=== PATIENT | female | born 1990 | race Caucasian/White ===

== ENCOUNTER 2019-03-23 04:07 | Emergency (ER) | payer MEDICAID ==
[~2019-03-23] VITALS: Ht 170.2 cm; Wt 61.2 kg
[2019-03-23 04:12] VITALS: BP 121/82
== END 2019-03-23 04:54 | disposition left against medical advice (07) ==
LOC: EDUNIT# 04:07 → EDBD 04:07 → ER 04:07
DX: F11.10 Opioid abuse, uncomplicated (principal); Z53.21 Procedure and treatment not carried out due to patient leaving prior to being seen by health care provider

== ENCOUNTER 2019-07-06 06:20 | Inpatient (IN) | payer MEDICAID ==
[~2019-07-06] VITALS: Ht 165.1 cm; Wt 62.3 kg
[2019-07-06] MEDS ORDERED: HYDROmorphone HCL 2 MG/ML VL IV ONE (07:30)
[2019-07-06] MEDS ORDERED: cefTRIAXone 1GM/50ML D5W 50 ML IV ONE (07:30)
[2019-07-06] MEDS ORDERED: levoFLOXacin 500MG 100 ML IV ONE (07:30)
[2019-07-06] MEDS ORDERED: ONDANSETRON HCL 4 MG/2 ML VIAL IV ONE (07:30)
[2019-07-06] MEDS ORDERED: SODIUM CHLORIDE 0.9% 1,000 ML IV ONE ×2 (07:30)
[2019-07-06 07:44] LABS: Basophils # (auto) 0.1 10 ^3/uL (0-0.2); Eosinophils # (auto) 0.1 10 ^3/uL (0-0.8); Eosinophils % (auto) 0.4 % (0.0-7.0); Lymphocytes # (auto) 1.9 10 ^3/uL (0.4-5.4); Mean Corpuscular Hemoglobin 26.1 pg (28.0-32.0); Neutrophils # (auto) 14.5 10 ^3/uL (1.6-8.6); Red Blood Cells 4.92 10^6/uL (4.0-5.20); Red Cell Distribution Width 15.9 % (11.8-14.3)
[2019-07-06 07:46] LABS: Basophils % (auto) 0.6 % (0.0-2.0); Hematocrit 39.3 % (36.0-46.0); Hemoglobin 12.9 g/dL (12.2-16.2); Lymphocytes % (auto) 10.7 % (10.0-50.0); Mean Corpuscular Hgb Conc. 32.7 g/dL (32.0-36.0); Mean Corpuscular Volume 79.9 fL (80.0-100.0); Monocytes % (auto) 5.7 % (0.0-12.0); Neutrophils % (auto) 82.6 % (37.0-80.0); Platelet Count (auto) 410 10^3/uL (140-450); White Blood Cell 17.5 10^3/uL (4.4-10.8)
[2019-07-06 08:03] LABS: Albumin 2.6 g/dL (3.4-5.0); BUN/Creatinine Ratio 16.7; Magnesium 2.2 mg/dL (1.6-2.6)
[2019-07-06 08:06] LABS: Bilirubin, Total 0.5 mg/dL (0.2-1.0); Total Protein 8.7 g/dL (6.4-8.2)
[2019-07-06 10:39] LABS: Urine Bacteria FEW /hpf (None Seen); Urine Blood Negative /uL (Negative); Urine Mucus FEW (None Seen); Urine Specific Gravity 1.013 (1.001-1.035); Urine WBC 1 /hpf (0 - 5)
[2019-07-06 10:44] LABS: Amphetamine Screen, Urine POSITIVE (NEGATIVE); Barbiturate Scree,Urine NEGATIVE (NEGATIVE); Benzodiazephine Screen, Urine NEGATIVE (NEGATIVE); Cannabinoid Screen, Urine NEGATIVE (NEGATIVE); Cocaine Screen, Urine NEGATIVE (NEGATIVE); Phencyclidine Screen, Urine NEGATIVE (NEGATIVE)
[2019-07-06 10:52] LABS: Opiate Scree,Urine POSITIVE (NEGATIVE)
[2019-07-06 10:53] LABS: Alcohol, Urine < 3.0 mg/dL (0-5)
[2019-07-06] MEDS ORDERED: KETOROLAC TROMETH 15 mg/ml 1ML VL IV ONE (11:00)
[2019-07-06] MEDS ORDERED: LORazepam 0.5 MG TAB PO PRN (11:15)
[2019-07-06] MEDS ORDERED: ACETAMINOPHEN 500 MG TAB PO PRN (11:15)
[2019-07-06] MEDS ORDERED: KETOROLAC TROMETH 15 mg/ml 1ML VL IV PRN (11:15)
[2019-07-06] MEDS ORDERED: TEMAZEPAM 15 MG CAP PO PRN (11:15)
[2019-07-06] MEDS ORDERED: PROMETHAZINE HCL 25 MG/ML 1ML IV PRN (11:15)
[2019-07-06] MEDS ORDERED: NITROGLYCERIN 0.4 MG SL TAB SL PRN (11:15)
[2019-07-06] MEDS ORDERED: KETOROLAC TROMETH 30 MG/ML 1ML VIAL IV ONE (11:15)
[2019-07-06] MEDS ORDERED: MORPHINE SULF INJ 2 MG/ML SYRINGE 1ML IV PRN (11:15)
--- NOTE | 2019-07-06 11:27 | NUR ---
RECEIVED REPORT FROM SHAI MUNIZ.
--- NOTE | 2019-07-06 12:50 | NUR ---
Telemetry admit from ER MAGALIS CLINE admitted to Telemetry unit after SBAR received. Patient oriented to CANDY ESTRADA, primary RN, unit, room, bed, and unit policies regarding patient care and visiting hours. Patient now on continuous telemetry monitoring, tele box # [id number] and telemetry reading on arrival to unit is SINUS TACHYCARDIA. Patient placed on bedside oxygen, weighed by bedscale and encouraged to call if they need something. All questions and concerns addressed, patient verbalized understanding.
[2019-07-06] MEDS: SODIUM CHLORIDE 0.9% 1,000 ML IV SCH ×2 (13:20→22:41)
[2019-07-06] MEDS: MORPHINE SULFATE 4 MG/ML SYR/VIAL IV PRN ×3 (13:42→22:11)
[2019-07-06] MEDS: CLINDAMYCIN 600MG IV 50 ML IV SCH ×2 (14:28→21:53)
[2019-07-06 17:00] VITALS: BP 93/56
--- NOTE | 2019-07-06 19:40 | NUR ---
Opening Shift Note Assumed care of patient, awake and alert. No S/S of distress/SOB. Instructed on POC and to call for assist PRN, patient verbalized understanding, call light within reach, will continue to monitor for changes Q1hr and PRN.
[2019-07-06 20:00] VITALS: BP 99/60
--- NOTE | 2019-07-06 20:50 | NUR ---
Patient complained she's hungry. Spoke to hospitalist Farhat and updated on patient's status. Received order to let patient eat at this time and to put her back to NPO after MN
--- NOTE | 2019-07-06 21:40 | NUR ---
Noted fresh scabs on both feet. Pictures taken for reference
[2019-07-06 21:51] VITALS: BP 99/60
[2019-07-06] MEDS: FAMOTIDINE 20 MG TAB PO SCH (21:52)
[2019-07-06] MEDS ORDERED: KETOROLAC TROMETH 30 MG/ML 1ML VIAL ONE (23:38)
[2019-07-07] MEDS: MORPHINE SULFATE 4 MG/ML SYR/VIAL IV PRN (04:41)
[2019-07-07 05:31] VITALS: BP 105/70
[2019-07-07] MEDS: CLINDAMYCIN 600MG IV 50 ML IV SCH (05:43)
[2019-07-07] MEDS: SODIUM CHLORIDE 0.9% 1,000 ML IV SCH (06:31)
--- NOTE | 2019-07-07 07:10 | NUR ---
Opening Shift Note: Assumed care of patient. Patient is asleep at this time. No S/S of distress/SOB or pain. Bed in lowest locked position, side rails up x 2, call light within reach. Patient will be instructed on POC and to call for assist PRN, will continue to monitor for changes Q1hr and PRN.
[2019-07-07 09:00] VITALS: BP 97/50
[2019-07-07] MEDS: FAMOTIDINE 20 MG TAB PO SCH (10:00)
[2019-07-07] MEDS ORDERED: levoFLOXacin 500MG 100 ML IV SCH (10:00)
--- NOTE | 2019-07-07 10:46 | NUR ---
DR GAITAN: Dr. Meng at bedside.
--- NOTE | 2019-07-07 11:07 | NUR ---
Patient refused lab draw. OR notified. Per OR procedure cannot be done without lab draw. Patient notified, Patients states "They can kiss my ass." Dr. Meng paged. Awaiting call back. Will continue to monitor.
--- NOTE | 2019-07-07 11:21 | NUR ---
Dr. Meng back at bedside. Explained to patient need for procedure and blood draw at this time. Patient continues to refuse. Will continue to monitor.
--- NOTE | 2019-07-07 12:00 | NUR ---
WOUND CARE NOTE: WOUND CARE TEAM IN TO SEE PATIENT PER WOUND CARE REQUEST. BEDSIDE NURSE NOTED WOUNDS UPON ADMISSION, PHOTOGRAPHS TAKEN AT THAT TIME FOR REFERENCE. PATIENT ADMITTED TO [facility] FOR LEFT GLUTEAL ABSCESS AND LEFT ARM ABSCESS. PATIENT HAS A LARGE CLOSED ABSCESS TO THE ENTIRETY OF THE LEFT BUTTOCK, AND A 1.7 x 1.5 OPEN ABSCESS TO THE LEFT UPPER ARM. PHOTOGRAPHS TAKEN AT THIS TIME FOR REFERENCE. WOUND TO LEFT UPPER ARM CLEANSED WITH NORMAL SALINE, PATTED DRY WITH STERILE GAUZE. APPLIED THERAHONEY AND OPTIFOAM GENTLE DRESSING. PATIENT TOLERATED WELL. PATIENT EDUCATED ON NEED TO REMAIN AN INPATIENT FOR POSSIBLE SURGICAL INTERVENTION. EXPLAINED RISKS OF REFUSING TREATMENT. PATIENT VERBALIZED UNDERSTANDING HOWEVER REMAINS BELLIGERENT DURING AND POST DRESSING CHANGE.
--- NOTE | 2019-07-07 12:15 | NUR ---
Patient threw tele box and pushed over IV pole.
--- NOTE | 2019-07-07 12:21 | NUR ---
AMA Note: MAGALIS CLINE states they want to leave the hospital Against Medical Advice (AMA). Patient encouraged to stay for further treatment/stabilization. Shaikh JUD notified of patient's wishes. Patient advised of the risks and benefits of leaving AMA. Patient verbalized understanding. IV removed, patient refused to have pressure dressing applied. Patient encouraged to return to the ER if symptoms do not improve or worsen. Addendum: 07/07/19 at 1234 by CHADWICK MAR RN RN Patient refused to sign AMA form, witnessed by charge nurse and warehouse lead.
--- NOTE | 2019-07-07 12:24 | NUR ---
Received Social Service consult to assess pt this AM. Pt left AMA this am
--- NOTE | 2019-07-08 12:30 | NUR ---
Pt left [place] prior to social Service Assessment.
== END 2019-07-07 12:25 | disposition left against medical advice (07) | DRG 720 ==
LOC: ER 06:20 → EDBD 06:20 → TELE 06:21 → TELE-WESTW 13:17
PROVIDERS: ADMIT Internal Medicine; ATTEND Internal Medicine
DX: A41.9 Sepsis, unspecified organism (principal); F11.90 Opioid use, unspecified, uncomplicated; G40.909 Epilepsy, unspecified, not intractable, without status epilepticus; L02.31 Cutaneous abscess of buttock; L03.317 Cellulitis of buttock; F15.90 Other stimulant use, unspecified, uncomplicated; Z88.1 Allergy status to other antibiotic agents; Z87.891 Personal history of nicotine dependence; Z83.3 Family history of diabetes mellitus; Z82.49 Family history of ischemic heart disease and other diseases of the circulatory system; Z88.8 Allergy status to other drugs, medicaments and biological substances
CPT/HCPCS: 36415; 72192; 80053; 80307; 81001; 83605; 83735; 84702; 85025; 87040; 96365; 96366; 96368; 96375; G0378; J0696; J1885; J1956; J2405; J3490